=== PATIENT | male | born 2000 | race African-American/Black ===

== ENCOUNTER 2024-11-05 14:45 | Emergency (ER) | payer SELFPAY ==
--- NOTE | ~2024-11-05 | CT_ITS ---
EXAMINATION: CT brain wo con DATE: 11/05/2024 16:06 INDICATION: syncope vs seizure . TECHNIQUE: Computed tomography (CT) of the head was performed with intravenous contrast. The mA was a djusted according to patient size. Iterative reconstruction technique was employed. The dose-length p roduct was 681.00 mGy-cm. COMPARISON: None. FINDINGS: No acute intracranial hemorrhage or extra-axial fluid collection. No hydrocephalus, mass, or herniation. No acute ischemic infarct. Unremarkable dural venous sinus attenuation. No acute osseous abnormality. The aerated spaces are clear. IMPRESSION: No acute intracranial process. Reviewed, dictated and finalized at location K. [facility] NURSE
[2024-11-05 15:46] VITALS: BP 125/79; PULSE 76; RESP 16; TEMP 36.4; O2SAT 97
--- NOTE | 2024-11-05 15:47 | ECG_ITS ---
Test Date: 2024-11-05 18:38:03 Measurements Intervals Freedom Rate: 79 P: 62 SD: 108 QRS: 38 QRSD: 91 T: 38 QT: 341 QTc: 391 Interpretive Statements SINUS RHYTHM WITH SINUS ARRHYTHMIA WITH SHORT SD INTERVAL POSSIBLE LEFT ATRIAL ENLARGEMENT [-0.1mV P WAVE IN V1/V2] NONSPECIFIC T-WAVE ABNORMALITY No previous ECG available for comparison Electronically Signed On 11-06-2024 11:33:03 TEST BORE HELPER by Juanito Mcbride M.D.
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
[2024-11-05 18:50] LABS: Basophils Percent Auto 0.4 % (0.2-1.2); Eosinophils Absolute Auto 0.1 K/mm3 (0-0.3); Eosinophils Percent Auto 0.6 % (0-4.4); Hematocrit 49.9 % (42.0-52.0); Immature Granulocyte Absolute 0.03 K/mm3 (0.00-0.031); Immature Granulocyte Percent A 0.3 % (0-0.5); Lymphocytes Absolute Auto 2.88 K/mm3 (0.9-3.2); Lymphocytes Percent Auto 28.9 % (18.3-44.2); Mean Corpuscular HGB Conc 32.1 g/dl (32-36); Mean Corpuscular Volume 84.1 fl (80-100); Mean Platelet Volume 10.7 fl (7.4-10.4); Monocytes Absolute Auto 0.7 K/mm3 (0.1-0.6); Monocytes Percent Auto 6.7 % (2.6-8.5); Neutrophils Absolute Auto 6.3 K/mm3 (1.3-6.7); Neutrophils Percent Auto 63.1 % (45.5-73.1); Platelet Count Result 356 k/mm3 (150-375); Red Blood Count 5.93 M/mm3 (4.6-6.20); Red Cell Distribution Width 12.8 % (11.5-14.5)
[2024-11-05 19:00] LABS: Alanine Aminotransferase 52 U/L (6-50); Albumin Level 4.5 g/dL (3.5-5.1); Alkaline Phosphatase 100 U/L (38-126); Anion Gap 11 mmol/L (4-12); Aspartate Amino Transferase 32 U/L (17-59); Bilirubin,Total 0.8 mg/dL (0.2-1.3); Blood Urea Nitrogen 16 mg/dL (9-20); Calcium 9.4 mg/dL (8.4-10.2); Carbon Dioxide 28 mmol/L (22-30); Chloride 100 mmol/L (98-107); Estimated CRCL calculation 123 ml/min; Estimated Glomerular Filt Rate > 60; Glucose 85 mg/dL (65-110); Magnesium 1.8 mg/dL (1.6-2.3); Potassium 4.1 mmol/L (3.4-5.0); Sodium 139 mmol/L (137-145)
[2024-11-05 21:32] VITALS: BP 148/83; PULSE 89; RESP 16; O2SAT 97
== END 2024-11-05 21:33 | disposition home or self-care (01) ==
LOC: ANHED 21:22
PROVIDERS: Physician Assistant; Emergency Provider Student in an Organized Health Care Education/Training Program
DX: R55 Syncope and collapse (principal); R94.31 Abnormal electrocardiogram [ECG] [EKG]
CPT/HCPCS: 36415; 70450; 80053; 83735; 85025; 93005; 99284